=== PATIENT | female | born 1975 | race African-American/Black ===

== ENCOUNTER 2019-01-15 20:44 | Emergency (ER) | payer OTHER ==
--- NOTE | 2019-01-15 20:50 | PDOC ---
Rapid Medical Evaluation Time Seen by Provider: 01/15/19 20:46 Medical Evaluation: 01/15/19 20:46 I have performed a brief in-person evaluation of this patient. The patient presents with a chief complaint of: Vaginal bleeding w/ L pelvic pain x 10 days. Also c/o weight gain. Gets monthly menses but states LMP 5 months ago and for reasons that are unclear states she has not taken a test. Pt (5 spon ABs, 1 ectopic s/p ? L salpingectomy) Pertinent physical exam findings:stable and in NAD I have ordered the following:ua/preg The patient will proceed to the ED for further evaluation Discharge Disposition - Diagnosis Vaginal bleeding - Referrals - Patient Instructions - Post Discharge Activity
[2019-01-15 20:52] VITALS: BP 128/80; PULSE 76; TEMP 98.2; BMI 27.3
[2019-01-15 21:17] LABS: URINE APPEARANCE CLEAR; URINE BILIRUBIN NEGATIVE (NEGATIVE); URINE COLOR YELLOW; URINE GLUCOSE (UA) NEGATIVE (NEGATIVE); URINE KETONE NEGATIVE (NEGATIVE); URINE LEUK ESTERASE NEGATIVE (NEGATIVE); URINE NITRITE NEGATIVE (NEGATIVE); URINE PROTEIN NEGATIVE (NEGATIVE); URINE UROBILINOGEN 0.2 mg/dL (0.2-1.0)
[2019-01-15] MEDS ORDERED: ACETAMINOPHEN 1000 MG/100 ML VIAL (NON FORMULARY) IVPB ONE (22:28)
[2019-01-15] MEDS ORDERED: SODIUM CHLORIDE 0.9% 500 ML INFUS.BAG IV ONE (22:28)
[2019-01-15] MEDS ORDERED: ACETAMINOPHEN INJECTION 100 ML IVPB ONE (22:45)
--- NOTE | 2019-01-15 23:01 | PDOC ---
Documentation entered by Liana Carlisle SCRIBE, acting as scribe for Frieda Davalos MD. Frieda Davalos MD: This documentation has been prepared by the juan joséibe, Liana Carlisle SCRIBE, under my direction and personally reviewed by me in its entirety. I confirm that the documentation accurately reflects all work, treatment, procedures, and medical decision making performed by me. Attending Attestation - Resident Resident Name: Yumi Casper - ED Attending Attestation I have performed the following: I have examined & evaluated the patient, The case was reviewed & discussed with the resident, I agree w/resident's findings & plan, Exceptions are as noted - HPI HPI: 01/15/19 22:28 43 yo female presents with vaginal bleeding for 10 days . She has not had a regular menstrual period in many months and she felt she was in menopause 01/15/19 22:45 The patient is a 43 year old female with no reported past medical history presents to the emergency department with 10 days of vaginal bleeding and pelvic pain. The patient presents with 10 days of heavy vaginal bleeding, that s been tapering down, associated with intermittent pelvic pain thats been worsening in severity the last 10 days, worse on the left side that radiates down to the leg, lower back pain and abdominal distention. The patient reports she hasnt had a menstrual cycle for months, prior to she had regular monthly cycle. Denies fever, chills, urinary symptoms. LMP: many months ago Allergies: NKDA - Physicial Exam PE: 01/15/19 22:31 wnwd 43 yo female in no acute distress head ncat neck supple lungs cta b/l cvs [id number] abd no rebound no guarding pelvic exam done by Dr Casper and she reports that there was scant vaginal blood in vault,os closed skin warm and dry neuro axox3 - Medical Decision Making 01/15/19 22:38 negative test 01/16/19 00:07 ultrasound reveals multiple fibroids labs were reviewed and they're unremarkable, patient does not require transfusion and has no significant anemia UA no infection. 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
--- NOTE | 2019-01-15 23:06 | PDOC ---
History of Present Illness - General Chief Complaint: Vaginal Bleeding Stated Complaint: VAGINAL BLEEDING Time Seen by Provider: 01/15/19 20:46 - History of Present Illness Initial Comments: Fili Wilson is a 43yo woman with no known medical problems who presnts reporting 10 days of heavy vaginal bleeding and worsening lower abdominal cramping. The pain is now 10/10, intermittent, cramping, and located in the RLQ. She reports that she has had 6 miscariiages, an ectopic "many years ago" as well as one live (son, age 14). She says that she usually gets her period every month but has not had it in 4-5 months. She notes that she has gained weight and had sore breasts as well. She is currently sexually active and does not use any control. Ms Wilson reports that she has not taken a test at home and did not consider that she may be . Due to her age, she thought she was starting menopause and that is why she stopped having her period. She denies any fevers, nausea/vomiting, change in bowel habits, difficulty walking, urinary symptoms, or vaginal discharge other than the current bleeding. Past History - Past Medical History Allergies/Adverse Reactions: Allergies Allergy/AdvReac Type Severity Reaction Status Date / Time No Known Allergies Allergy Verified 01/15/19 20:52 COPD: No - Suicide/Smoking/Psychosocial Hx Smoking History: Unknown if ever smoked Have you smoked in the past 12 months: No Information on smoking cessation initiated: No Hx Alcohol Use: No Drug/Substance Use Hx: No Review of Systems - Review of Systems Comments:: General: No fevers, no chills, no weight or appetite change, no malaise HEENT: No changes in vision, no changes in hearing, no congestion, no sore throat CV: No chest pain, no palpitations, no LE edema Pulm: No SOB, no cough, no wheezing GI: No nausea or vomiting, no change in bowel habits, no melena : See HPI Musc: No back pain, no joint swelling, no recent injury Skin: No rash, no lesions, no erythema Endo: No excessive thirst, no heat/cold intolerance Heme: No unusual bruising or bleeding, no swollen glands Neuro: No syncope, no numbness/tingling, no focal weakness Vasc: No claudication Psych: No recent change in mood, no SI or HI *Physical Exam - Vital Signs Last Vital Signs Temp Pulse Resp BP Pulse Ox 98.2 F 76 16 128/80 100 01/15/19 20:48 01/15/19 20:48 01/15/19 20:48 01/15/19 20:48 01/15/19 20:48 - Physical Exam Comments: General: Comfortable, no acute distress HEENT: PERRL, EOMI, MMM, voice normal, normal neck ROM, no LAD Cards: RRR, no murmur appreciated Pulm: Comfortable on room air, clear to auscultation bilaterally Abd: Soft, nontender, nondistended : Normal external genitalia. Scant dark blood in vaginal canal. No lesions noted. Os closed to palpation. Significant discomfort with exam, difficult to determine CMT. Right greater than left adnexal tenderness Ext: Atraumatic. No LE edema. ROM intact. Vasc: Extremities WWP. Skin: Normal color, no rashes or lesions Neuro: A&Ox3, CN grossly intact, normal speech, motor/sensory grossly intact and symmetric Psych: Mood appropriate to situation ED Treatment Course - LABORATORY CBC & Chemistry Diagram: 01/15/19 22:49 01/15/19 22:49 - ADDITIONAL ORDERS Additional order review: Laboratory Results 01/15/19 01/15/19 20:57 20:57 Urine Color Yellow Urine Appearance Clear Urine pH 8.0 Ur Specific [place] 1.023 Urine Protein Negative Urine Glucose (UA) Negative Urine Ketones Negative Urine Blood Negative Urine Nitrite Negative Urine Bilirubin Negative Urine Urobilinogen 0.2 Ur Leukocyte Esterase Negative Urine HCG, Qual Negative - RADIOLOGY Radiology Studies Ordered: Category Date Time Status TRANSVAGINAL ULTRASOUND US [US] Stat Ultrasound 01/15/19 22:27 Ordered - Medications Given in the ED: ED Medications Discontinued Medications Generic Name Dose Route Start Last Admin Trade Name Freq PRN Reason Stop Dose Admin Sodium Chloride 1,000 ml 01/15/19 22:28 01/15/19 23:03 Normal Saline - IV 01/15/19 22:29 1,000 ml ONCE ONE Administration Medical Decision Making - Medical Decision Making 01/15/19 23:06 Fili Wilson is a 43yo woman with no known medical problems who presnts reporting 10 days of heavy vaginal bleeding and worsening lower abdominal cramping. She reports that she is sexually active and has not had her period in 4-5 months, though she has not taken a test. - Suspect , possible threatened v inevitable v complete , perimenopausal menstrual irregularities. Possibly PID or cervicitis given discomfort w/ pelvic exam, possible ovarian torsion given rt adnexal tenderness - CBC, CMP, UA, urine preg - IVF, acetaminophen - Transvaginal US 01/15/19 23:50 - Urine preg negative, UA negative - Labs completed, reviewed. No concerning abnormalities - Transvaginal US completed, read pending 01/16/19 00:01 - US shows multiple fibroids but no other abnormalities - Updated pt. Should be able to go home with gyne follow up. Pt reports that [place] a flight physician [place] but will also give contact info for follow up here. Discussed home care, return precautions at length. Pt agrees with the plan Discussed with Dr Davalos. Yumi Casper PGY2 *DC/Admit/Observation/Transfer Diagnosis at time of Disposition: Vaginal bleeding Uterine fibroid Qualifiers: Uterine leiomyoma location: unspecified location Qualified Code(s): D25.9 - Leiomyoma of uterus, unspecified - Discharge Dispostion Disposition: HOME Condition at time of disposition: Stable Decision to Admit order: No - Referrals Schedule a call back: GC/chlamydia Referrals: [facility] [Provider Group] Efren Olsen MD [Staff Physician] - Carina Irene DO [Staff Physician] - Melinda Duarte MD [Staff Physician] - Albin Hooper MD [Staff Physician] - - Patient Instructions Printed Discharge Instructions: DI for Uterine Fibroids Additional Instructions: Discharge Instructions: You were seen in the emergency department for heavy vaginal bleeding. You had blood tests which did not show any any concerning abnormalities. Your ultrasound showed multiple uterine fibroids. This may be the cause of your cramping pain. Home Care and Follow Up: - You may use over the counter medications as needed for pain at home. 650- 1000mg acetaminophen (Tylenol) or 600mg ibuprofen (Motrin or Advil) can be used every 6-8 hours. If needed for continued pain, these medications may be alternated every 3-4 hours. For example, if you take ibuprofen at 9am, you may take acetaminophen at noon, ibuprofen at 3pm, etc. - It is strongly recommended that you take ibuprofen with food to help prevent stomach irritation. - Try using a heating pad for additional pain control. These should NOT be used over the lidocaine patch, but you may place them over the areas of pain while the patch is off. - Do not stop moving around. As much as you can tolerate, continue to do light exercise and stretching exercises. Increase your activity level as much as you can tolerate daily. - You will need to follow up with gynecology for additional evaluation. Please make an appointment within the next week. If you need to establish care with a new flight physician, you have been provided with contact information for [facility] gynecologists. - Seek immediate medical care if you have significant worsening of your symptoms , the bleeding worsens and you soak through multiple pads per hour for several hours, you develop fever to 101F or higher, or you have any other medical emergency. - Post Discharge Activity
[2019-01-15 23:08] LABS: BASO % 0.6 % (0-2.0); EOS % 2.3 % (0-4.5); HEMATOCRIT 38.8 % (32.4-45.2); HEMOGLOBIN 12.9 GM/dL (10.7-15.3); MCH 30.7 pg (25.7-33.7); MCHC 33.2 g/dl (32.0-36.0); MEAN CELL VOLUME 92.4 fl (80-96); MEAN PLT VOLUME 7.3 fl (7.5-11.1); MONO % 7.1 % (3.8-10.2); PLATELET COUNT 256 K/MM3 (134-434); WHITE BLOOD COUNT 6.1 K/mm3 (4.0-10.0)
[2019-01-15 23:28] LABS: ALBUMIN 3.8 g/dl (3.4-5.0); BILIRUBIN,TOTAL 0.3 mg/dL (0.2-1); BLOOD UREA NITROGEN 17.3 mg/dL (7-18); CALCIUM 8.5 mg/dL (8.5-10.1); CREATININE 0.7 mg/dL (0.55-1.3); TOT PROT 6.9 g/dl (6.4-8.2)
== END 2019-01-16 00:20 | disposition home or self-care (01) ==
LOC: JER 20:44
PROC: 3E033NZ Introduction of Analgesics, Hypnotics, Sedatives into Peripheral Vein, Percutaneous Approach (ICD-10-PCS; principal; 2019-01-15)
PROC: 3E0337Z Introduction of Electrolytic and Water Balance Substance into Peripheral Vein, Percutaneous Approach (ICD-10-PCS; 2019-01-15)
DX: D25.9 Leiomyoma of uterus, unspecified (principal)
CPT/HCPCS: 36415; 76830-TC; 80053; 81003; 84703; 85025; 87491; 87591; 87661; 96374; 99282-25; J0131